=== PATIENT | male | born 1990 | race Caucasian/White ===

== ENCOUNTER 2016-11-28 20:13 | Emergency (ER) | payer OTHER ==
[~2016-11-28] VITALS: Ht 182.9 cm; Wt 95.3 kg
[~2016-11-28 20:13] MED LIST: PENI500T PO; Z.0.NO CURRENT MEDS
[2016-11-28 20:26] VITALS: BP 109/58; PULSE 77; RESP 16; TEMP 98.4; O2SAT 99
[2016-11-28 20:59] VITALS: BP 118/66; PULSE 78; RESP 18; TEMP 98.4; O2SAT 99
[2016-11-28] MEDS ORDERED: SODIUM CHLOR 0.9% 1000 ML INJ 1,000 ML IV SCH (21:11)
[2016-11-28] MEDS ORDERED: SODIUM CHLORIDE 0.9% FLUSH 10 ML FLUSH IV FLUSH PRN (21:15)
--- NOTE | 2016-11-28 21:19 | PD ---
HPI Chief Complaint: Abdominal Pain Time Seen by Provider: 21:04 Travel History International Travel<30 days: No Contact w/Intl Traveler<30days: No Traveled to known affect area: No History of Present Illness HPI Patient 26-year-old male has been having right lower quadrant abdominal pains morning. Patient states he thought it was gas. States not had this before. Is coming by his states that he is not a complainer. Endorses mild nausea without vomiting. States the pain is mild and declined pain medicine on several offers in the emergency department. States the pain is been constant. No fevers no diarrhea denies blood in the stool denies melena denies hemoptysis denies hematemesis. Denies dysuria. PFSH Past Medical History Medical History: Denies Significant Hx Diminished Hearing: No Tetanus Vaccination: < 5 Years Influenza Vaccination: Yes Past Surgical History Surgical History: No Previous Surgery Social History Alcohol Use: No Tobacco Use: No Substance Use: No Allergies-Medications (Allergen,Severity, Reaction): Coded Allergies: No Known Allergies (Unverified , 11/28/16) Reported Meds & Prescriptions Reported Meds & Active Scripts Active Flagyl (Metronidazole) 500 Mg Tab 500 Mg PO BID 7 Days Ciprofloxacin (Ciprofloxacin HCl) 500 Mg Tab 500 Mg PO BID 7 Days Review of Systems Except as stated in HPI: all other systems reviewed are Neg Physical Exam Narrative GENERAL: Well-developed well-nourished no apparent distress SKIN: Focused skin assessment warm/dry. HEAD: Atraumatic. Normocephalic. EYES: Pupils equal and round. No scleral icterus. No injection or drainage. ENT: No nasal bleeding or discharge. Mucous membranes pink and moist. NECK: Trachea midline. No JVD. CARDIOVASCULAR: Regular rate and rhythm. No murmur appreciated. RESPIRATORY: No accessory muscle use. Clear to auscultation. Breath sounds equal bilaterally. GASTROINTESTINAL: Abdomen soft, minimally tender in the right lower quadrant without any rebound or percussive tenderness, psoas and obturator signs negative. Nondistended. Hepatic and splenic margins not palpable. MUSCULOSKELETAL: No obvious deformities. No clubbing. No cyanosis. No edema. NEUROLOGICAL: Awake and alert. No obvious cranial nerve deficits. Motor grossly within normal limits. Normal speech. PSYCHIATRIC: Appropriate mood and affect; insight and judgment normal. Data Data Last Documented VS Vital Signs Date Time Temp Pulse Resp B/P Pulse Ox O2 Delivery O2 Flow Rate FiO2 11/29/16 00:50 74 18 121/66 99 Room Air 11/28/16 20:59 98.4 Orders Complete Blood Count With Diff (11/28/16 21:11) Comprehensive Metabolic Panel (11/28/16 21:11) Urinalysis - C+S If Indicated (11/28/16 21:11) Iv Access Insert/Monitor (11/28/16 21:11) Ecg Monitoring (11/28/16 21:11) Oximetry (11/28/16 21:11) Sodium Chlor 0.9% 1000 Ml Inj (Ns 1000 M (11/28/16 21:11) Sodium Chloride 0.9% Flush (Ns Flush) (11/28/16 21:15) Ct Abd/Pel W Iv Contrast(Rout) (11/28/16 ) Iohexol 350 Inj (Omnipaque 350 Inj) (11/28/16 23:47) Labs Laboratory Tests Test 11/28/16 11/28/16 21:30 21:55 White Blood Count 7.5 TH/MM3 Red Blood Count 4.75 MIL/MM3 Hemoglobin 13.7 GM/DL Hematocrit 40.6 % Mean Corpuscular Volume 85.5 FL Mean Corpuscular Hemoglobin 28.9 PG Mean Corpuscular Hemoglobin 33.8 % Concent Red Cell Distribution Width 12.7 % Platelet Count 206 TH/MM3 Mean Platelet Volume 9.1 FL Neutrophils (%) (Auto) 66.4 % Lymphocytes (%) (Auto) 19.3 % Monocytes (%) (Auto) 9.6 % Eosinophils (%) (Auto) 4.3 % Basophils (%) (Auto) 0.4 % Neutrophils # (Auto) 5.0 TH/MM3 Lymphocytes # (Auto) 1.5 TH/MM3 Monocytes # (Auto) 0.7 TH/MM3 Eosinophils # (Auto) 0.3 TH/MM3 Basophils # (Auto) 0.0 TH/MM3 CBC Comment DIFF FINAL Differential Comment Sodium Level 140 MEQ/L Potassium Level 3.8 MEQ/L Chloride Level 105 MEQ/L Carbon Dioxide Level 30.5 MEQ/L Anion Gap 5 MEQ/L Blood Urea Nitrogen 14 MG/DL Creatinine 1.10 MG/DL Estimat Glomerular Filtration 81 ML/MIN Rate Random Glucose 106 MG/DL Calcium Level 8.4 MG/DL Total Bilirubin 0.3 MG/DL Aspartate Amino Transf 17 U/L (AST/SGOT) Alanine Aminotransferase 20 U/L (ALT/SGPT) Alkaline Phosphatase 79 U/L Total Protein 7.4 GM/DL Albumin 4.1 GM/DL Urine Color YELLOW Urine Turbidity CLEAR Urine pH 6.0 Urine Specific [place] 1.027 Urine Protein NEG mg/dL Urine Glucose (UA) NEG mg/dL Urine Ketones NEG mg/dL Urine Occult Blood NEG Urine Nitrite NEG Urine Bilirubin NEG Urine Leukocyte Esterase NEG Urine WBC 0-2 /hpf Urine Squamous Epithelial 0-5 /hpf Cells Urine Mucus MOD /lpf Microscopic Urinalysis Comment CULT NOT INDICATED MDM Medical Decision Making Medical Screen Exam Complete: Yes Emergency Medical Condition: Yes Differential Diagnosis Appendicitis seems unlikely, colitis, gastritis, gastroenteritis, urinary tract infection. Narrative Course Patient was roomed emergency department, his abdomen is benign with trivial tenderness of the right lower quadrant. Initially was offered CAT scan patient emring would like to see his blood work first. Blood work returns and shows no concerning abnormality, urine is negative. Discussed with the patient that I 'm fairly convinced that he does not have an appendicitis but cannot completely exclude. He then requested a CAT scan. Happily ordered this. It does show some terminal ileitis but the appendix was not viewed. Last 24 hours Impressions Abdomen/Pelvis CT 11/28/16 0000 Signed Impressions: Service Date/Time: Wednesday, November 28, 2016 23:29 - CONCLUSION: Mild mural thickening of the terminal ileum with some mildly enlarged lymph nodes in the right lower quadrant. Primary differential diagnosis is terminal ileitis, possibly inflammatory bowel disease. No abscess, obstruction, free fluid or free air. Appendix not definitely identified. Michael Aj MD Discussed the patient his CAT scan and laboratory results and recommended outpatient therapy at this time. Will be prescribed antibiotics. I recommended that he follow-up with his primary care physician as early as convenience for reexamination and discussed return to ED criteria. Again he appears quite well and declined any pain medicine in the emergency department. He is stable for discharge. Diagnosis Primary Impression: Ileitis Referrals: Ronald Polo MD Patient Instructions: Enteritis (DC), General Instructions Med/Other Pt SpecificInfo: Prescription(s) given Scripts Metronidazole (Flagyl)500 Mg [id number] Mg PO BID 7 Days Ref 0 Prov:Jose F Che MD 11/29/16 Ciprofloxacin 500 Mg [id number] Mg PO BID 7 Days Ref 0 Prov:Jose F Che MD 11/29/16 Disposition: 01 DISCHARGE HOME Condition: Stable Jose F Che MD November 28, 2016 21:19
[2016-11-28 21:32] VITALS: RESP 18; O2SAT 99
[2016-11-28 22:00] LABS: BASOPHIL % 0.4 % (0.0-2.0); EOSINOPHIL # 0.3 TH/MM3 (0-0.4); EOSINOPHIL % 4.3 % (0.0-4.0); HEMATOCRIT 40.6 % (39.0-51.0); HEMO FLAGS DIFF FINAL; LYMPH % 19.3 % (9.0-44.0); LYMPHOCYTE # 1.5 TH/MM3 (1.0-4.8); MEAN CELL VOLUME 85.5 FL (80.0-100.0); MEAN CORPUSCULAR HEMOGLOBIN 28.9 PG (27.0-34.0); MEAN CORPUSCULAR HGB CONC 33.8 % (32.0-36.0); MONO % 9.6 % (0.0-8.0); NEUT % 66.4 % (16.0-70.0); PLATELET COUNT 206 TH/MM3 (150-450); RED BLOOD COUNT 4.75 MIL/MM3 (4.50-5.90); RED CELL DISTRIBUTION WIDTH 12.7 % (11.6-17.2); WHITE BLOOD COUNT 7.5 TH/MM3 (4.0-11.0)
[2016-11-28 22:14] LABS: BLOOD, URINE NEG (NEG); GLUCOSE,URINE NEG (NEG); KETONE, URINE NEG (NEG); NITRITE,URINE NEG (NEG)
[2016-11-28 22:23] LABS: CHLORIDE 105 MEQ/L (98-107); POTASSIUM 3.8 MEQ/L (3.5-5.1); SODIUM (NA) 140 MEQ/L (136-145)
[2016-11-28 22:26] LABS: MUCUS URINE MOD /lpf (OCC); SQUAMOUS EPITHELIAL CELL URINE 0-5 /hpf (0-5); URINE COLOR YELLOW (YELLW/STRAW)
[2016-11-28 22:27] LABS: ANION GAP 5 MEQ/L (5-15); BICARBONATE 30.5 MEQ/L (21.0-32.0); BLOOD UREA NITROGEN 14 MG/DL (7-18)
[2016-11-28 22:27] LABS: COMMENT (UR) CULT NOT INDICATED; CULTURE IF INDICATED CULT NOT INDICATED; WBC, URINE 0-2 /hpf (0-5)
[2016-11-28 22:30] LABS: ALT (GPT) 20 U/L (12-78); AST (GOT) 17 U/L (15-37); GLOMERULAR FILTRATION RATE 81 ML/MIN (>89)
[2016-11-28 22:31] LABS: TOTAL BILIRUBIN ADULT 0.3 MG/DL (0.2-1.0)
[2016-11-28 22:33] LABS: ALKALINE PHOSPHATASE 79 U/L (45-117)
[2016-11-28 22:43] VITALS: BP 132/68; PULSE 74; RESP 18; O2SAT 99
[2016-11-28] MEDS ORDERED: IOHEXOL 350 MG/ML 10 ML VIAL (for RAD DIAG) IV ONE (23:47)
--- NOTE | 2016-11-29 00:32 | RADHPO ---
EXAM DATE/TIME: 11/28/2016 23:29 [facility] COMPARISON: No previous studies available for comparison. INDICATIONS : Right lower quadrant pain for 3 days. IV CONTRAST: 93 cc Omnipaque 350 (iohexol) IV ORAL CONTRAST: No oral contrast ingested. RADIATION DOSE: 10.61 CTDIvol (mGy) MEDICAL HISTORY : None SURGICAL HISTORY : None. ENCOUNTER: Initial ACUITY: 3 days PAIN SCALE: 5/10 LOCATION: Right lower quadrant TECHNIQUE: Volumetric scanning of the abdomen and pelvis was performed. Using automated exposure control and ad justment of the mA and/or kV according to patient size, radiation dose was kept as low as reasonably achievable to obtain optimal diagnostic quality images. FINDINGS: Limited bases are clear. No acute findings in the liver, spleen, adrenals, kidneys or pancreas. No fr ee fluid or free air. No bowel obstruction. No adenopathy. There are some mildly enlarged lymph nodes in the right lower quadrant measuring up to 1.9 cm in diam eter. The terminal ileum does appear to be mildly thickened. Appendix is not definitively identified. No acute bony abnormalities. CONCLUSION: Mild mural thickening of the terminal ileum with some mildly enlarged lymph nodes in the right lower quadrant. Primary differential diagnosis is terminal ileitis, possibly inflammatory bowel disease. No abscess, obstruction, free fluid or free air. Appendix not definitely identified. Michael Aj MD on November 29, 2016 at 0:24 Board Certified Radiologist. This report was verified electronically.
[2016-11-29] MEDS ORDERED: CIPR500T2 PO (00:35)
[2016-11-29] MEDS ORDERED: METR-1 PO (00:35)
[2016-11-29 00:50] VITALS: BP 121/66; PULSE 74; RESP 18; O2SAT 99
== END 2016-11-29 00:52 | disposition home or self-care (01) ==
LOC: PHED 20:13
DX: K52.9 Noninfective gastroenteritis and colitis, unspecified (principal)
CPT/HCPCS: 74177; 80053; 81001; 85025; 96360; 99285; J7030; Q9967